=== PATIENT | male | born 1950 | race Caucasian/White ===

== ENCOUNTER 2018-07-13 17:17 | Inpatient (IN) ==
[2018-07-13] MEDS ORDERED: 0.9 % Sodium Chloride 1,000 ML IVC ONE (17:31)
[2018-07-13 17:47] LABS: Basophils % 0.4 %; Eosinophils # 0.2 K/mcL (0.0-0.6); Eosinophils % 2.4 %; Hematocrit 30.3 % (37.5-50.1); Hemoglobin 9.5 g/dL (12.9-16.9); Immature Granulocytes % 0.4 % (0-4); Lymphocytes # 1.4 K/mcL (0.6-4.6); Lymphocytes % 15.3 %; Mean Corpuscular HGB Conc 31.4 g/dL (31.6-35.5); Mean Corpuscular Hemoglobin 26.3 pg (28.0-33.3); Mean Corpuscular Volume 83.9 fL (83.0-100.0); Mean Platelet Volume 10.1 fL (9.4-12.4); Monocytes # 0.6 K/mcL (0.0-1.3); Monocytes % 6.7 %; Neutrophils # 6.9 K/mcL (1.6-8.9); Platelet Count 178 K/mcL (140-400); Red Blood Count 3.61 M/mcL (4.19-5.50); Red Cell Distribution Width 20.3 % (11.5-14.5); Segmented Neutrophils % 74.8 %
[2018-07-13 18:00] LABS: INR 1.1; Prothrombin Time 12.2 Seconds (9.4-12.1)
[2018-07-13 18:03] LABS: Activated Partial Thrombo Time 37.1 Seconds (26.0-36.0)
[2018-07-13 18:08] LABS: Alanine Aminotransferase 31 Units/L (7-52); Albumin 3.8 g/dL (3.5-5.7); Alkaline Phosphatase 74 Units/L (34-104); Aspartate Amino Transferase 33 Units/L (13-39); BUN/Creatinine Ratio 44 (6-26); Bilirubin,Total 0.5 mg/dL (0.3-1.0); Blood Urea Nitrogen 64 mg/dL (8-23); Calcium 9.6 mg/dL (8.6-10.3); Carbon Dioxide 30 mEq/L (23-29); Chloride 99 mEq/L (98-107); Globulin 3.7 g/dL (2.4-3.5); Glucose 112 mg/dL (70-105); Osmolality,Calculated 299 (280-300); Potassium 4.8 mEq/L (3.5-5.1); Sodium 135 mEq/L (136-145); Total Protein 7.5 g/dL (6.4-8.9); Troponin I < 0.03 ng/mL (< 0.04); eGFR For Non-African Americans 48 (> 60)
[2018-07-13] MEDS ORDERED: *HR* OxyCODONE/APAP 5/325 TABLET PO ONE (18:37)
--- NOTE | 2018-07-13 19:41 | Emergency Department Note ---
Disposition Clinical Impression: Anemia Qualifiers: Anemia type: unspecified type Qualified Code(s): D64.9 - Anemia, unspecified GI bleed Qualifiers: GI bleed type/associated pathology: unspecified gastrointestinal hemorrhage type Qualified Code(s): K92.2 - Gastrointestinal hemorrhage, unspecified Disposition: Admitted As Inpatient Condition: Fair [facility]: [facility]Primary Care Provider[facility] - Forms: ED Satisfaction Letter GI Bleed HPI - General Chief complaint: ED GI Bleed Stated complaint: anemia Time Seen by Provider: 07/13/18 17:23 Source: patient, EMS Mode of arrival: EMS Limitations: no limitations Nursing Notes Reviewed: Yes Vital Signs Reviewed: Yes - History of Present Illness HPI Narrative: 68-year-old male with a past medical history of polyps and hemorrhoids requiring multiple banding who presents to the ER from the [place] due to concern for rectal bleeding. States for 3 weeks he has had bleeding from his rectum. Has noticed that with every bowel movement. He is on an aspirin daily. Reports he has felt weak during this time and dizzy whenever he stands up his blood pressure has been low at home. No prior history of blood transfusion requirement secondary to GI bleed in the past. He was seen by his wine bottle inspector today who recommended he go to the ER. He went to the [facility] who then transferred him here. Denies any chest pain, shortness of breath, abdominal pain, nausea vomiting or diarrhea. No other complaints. Pt Subjective Complaint: gross hematochezia Onset (ago): week(s) Consistency: intermittent Improves with: nothing Worsens with: nothing Context: history of GI bleed, hemorrhoids Associated symptoms: Denies: abdominal pain Treatments Prior to Arrival: none - Related Data Allergies Allergy/AdvReac Type Severity Reaction Status Date / Time No Known Allergies Allergy Verified 07/13/18 17:47 All systems ED: reviewed and negative except as stated. Cardiovascular: Denies: chest pain Respiratory: Denies: dyspnea Gastrointestinal: Reports: hematochezia. Denies: abdominal pain, nausea, vomiting, diarrhea, hematemesis, melena Genitourinary: Denies: dysuria, hematuria Past Medical History - Past Medical History Attestation: Yes The following information was validated with the patient. Source: patient Medical history: Reports: asthma, COPD, diabetes, hyperlipidemia, hypertension, myocardial infarction Psychiatric history: Reports: anxiety, depression - Social History Smoking Status: Former smoker Smokeless Tobacco Status: No Alcohol use: Reports: none Drug use: Reports: none Physical Exam - General Limitations: no limitations General appearance: alert, in no apparent distress - Head Head exam: atraumatic, normocephalic, normal inspection - Eye Eye exam: Present: normal appearance - ENT ENT exam: normal exam - Neck Neck exam: Present: normal inspection - Chest Chest inspection: Present: normal inspection, symmetric chest wall rise - Respiratory Respiratory exam: Present: normal lung sounds bilaterally - Cardiovascular Cardiovascular exam: Present: regular rate, normal rhythm, normal heart sounds - Abdominal Exam Abdominal exam: Present: soft, Non-Tender. Absent: tenderness, distention, rigidity - Extremities Exam Extremities exam: Present: normal inspection, full ROM - Expanded Upper Extremity Exam Shoulder exam: Present: normal inspection, full ROM Arm exam: Present: normal inspection, full ROM Elbow exam: Present: normal inspection, full ROM Forearm/Wrist exam: Present: normal inspection, full ROM Hand exam: Present: normal inspection, full ROM - Expanded Lower Extremity Exam Hip/Pelvis exam: Present: normal inspection, full ROM Upper leg exam: Present: normal inspection, full ROM Knee exam: Present: normal inspection, full ROM Lower leg exam: Present: normal inspection, full ROM Ankle exam: Present: normal inspection, full ROM Foot/toe exam: Present: normal inspection, full ROM - Skin Skin exam: Present: warm, dry Course Course Narrative: Patient seen and examined. Vital signs reviewed. Plan for labs, IV fluids and likely admission for symptomatic anemia. - Consultations Consultation #1: I spoke with the on-call endoscopist Dr. Bush. Discussed patient's history as well as labs and concerns. Recommends to give the patient clear liquids, give the patient GoLYTELY and they will plan to scope him in the morning. Time: 18:36 Vital Signs Temperature 98.7 F 07/13/18 17:28 Pulse Rate 67 07/13/18 17:28 Respiratory Rate 18 07/13/18 17:28 Blood Pressure 113/51 07/13/18 17:28 O2 Sat by Pulse Oximetry 94 07/13/18 17:28 Temperature 98.7 F 07/13/18 17:28 Pulse Rate 67 07/13/18 17:28 Respiratory Rate 18 07/13/18 17:28 Blood Pressure 113/51 07/13/18 17:28 O2 Sat by Pulse Oximetry 94 07/13/18 17:28 Oxygen Delivery Oxygen Delivery Room Air GI Bleed - [facility] Narrative Medical decision making narrative: 68-year-old male presenting with multiple complaints. He said rectal bleeding for 3 weeks. He felt lightheaded at home. He is noted to have a hemoglobin of 9.5 today. He is hemodynamically stable. Case discussed with on-call endoscopy this. Plan to scope the patient in the morning. - Lab Data Lab results reviewed: Yes I reviewed the patient's lab results. Result diagrams: 07/13/18 17:36 07/13/18 17:36 Lab Results 07/13/18 07/13/18 07/13/18 Range/Units 17:36 17:36 17:36 WBC 9.2 (4.3-11.1) K/mcL RBC 3.61 L (4.19-5.50) M/mcL Hgb 9.5 L (12.9-16.9) g/dL Hct 30.3 L (37.5-50.1) % MCV 83.9 (83.0-100.0) fL MCH 26.3 L (28.0-33.3) pg MCHC 31.4 L (31.6-35.5) g/dL RDW 20.3 H (11.5-14.5) % Plt Count 178 (140-400) K/mcL MPV 10.1 (9.4-12.4) fL Immature Gran % 0.4 (0-4) % Seg Neutrophils % 74.8 % Lymphocytes % 15.3 % Monocytes % 6.7 % Eosinophils % 2.4 % Basophils % 0.4 % Neutrophils # 6.9 (1.6-8.9) K/mcL Lymphocytes # 1.4 (0.6-4.6) K/mcL Monocytes # 0.6 (0.0-1.3) K/mcL Eosinophils # 0.2 (0.0-0.6) K/mcL Basophils # 0.0 (0.0-0.2) K/mcL PT 12.2 H (9.4-12.1) Seconds INR 1.1 APTT 37.1 H (26.0-36.0) Seconds Sodium 135 L (136-145) mEq/L Potassium 4.8 (3.5-5.1) mEq/L Chloride 99 (98-107) mEq/L Carbon Dioxide 30 H (23-29) mEq/L BUN 64 H (8-23) mg/dL Creatinine 1.45 H (0.70-1.30) mg/dL Est GFR ( Amer) 58 L (> 60) Est GFR (Non-Af Amer) 48 L (> 60) BUN/Creatinine Ratio 44 H (6-26) Glucose 112 H (70-105) mg/dL Calculated Osmolality 299 (280-300) Calcium 9.6 (8.6-10.3) mg/dL Total Bilirubin 0.5 (0.3-1.0) mg/dL AST 33 (13-39) Units/L ALT 31 (7-52) Units/L Alkaline Phosphatase 74 (34-104) Units/L Troponin I < 0.03 (< 0.04) ng/mL Serum Total Protein 7.5 (6.4-8.9) g/dL Albumin 3.8 (3.5-5.7) g/dL Globulin 3.7 H (2.4-3.5) g/dL Albumin/Globulin Ratio 1.0 L (1.1-2.2) Blood Type 07/13/18 Range/Units 17:37 WBC (4.3-11.1) K/mcL RBC (4.19-5.50) M/mcL Hgb (12.9-16.9) g/dL Hct (37.5-50.1) % MCV (83.0-100.0) fL MCH (28.0-33.3) pg MCHC (31.6-35.5) g/dL RDW (11.5-14.5) % Plt Count (140-400) K/mcL MPV (9.4-12.4) fL Immature Gran % (0-4) % Seg Neutrophils % % Lymphocytes % % Monocytes % % Eosinophils % % Basophils % % Neutrophils # (1.6-8.9) K/mcL Lymphocytes # (0.6-4.6) K/mcL Monocytes # (0.0-1.3) K/mcL Eosinophils # (0.0-0.6) K/mcL Basophils # (0.0-0.2) K/mcL PT (9.4-12.1) Seconds INR APTT (26.0-36.0) Seconds Sodium (136-145) mEq/L Potassium (3.5-5.1) mEq/L Chloride (98-107) mEq/L Carbon Dioxide (23-29) mEq/L BUN (8-23) mg/dL Creatinine (0.70-1.30) mg/dL Est GFR ( Amer) (> 60) Est GFR (Non-Af Amer) (> 60) BUN/Creatinine Ratio (6-26) Glucose (70-105) mg/dL Calculated Osmolality (280-300) Calcium (8.6-10.3) mg/dL Total Bilirubin (0.3-1.0) mg/dL AST (13-39) Units/L ALT (7-52) Units/L Alkaline Phosphatase (34-104) Units/L Troponin I (< 0.04) ng/mL Serum Total Protein (6.4-8.9) g/dL Albumin (3.5-5.7) g/dL Globulin (2.4-3.5) g/dL Albumin/Globulin Ratio (1.1-2.2) Blood Type A POSITIVE - Radiology Data Radiology results reviewed: Yes I reviewed the patient's radiology results. Chest X-Ray 07/13/18 17:31 IMPRESSION: No acute process. D/ / 07/13/2018 18:04:19 Georges Joiner MD / [facility] Interpreting Provider: Georges Joiner MD - EKG Data EKG attestation: Yes I reviewed and interpreted this EKG. EKG results narrative: EKG demonstrates sinus rhythm with right bundle-branch block with a rate of 68 beats or minute. Normal axis. Prolonged QRS duration of 155. No gross ST elevations or depressions. No acute ischemic findings. No previous EKG for comparison. Kimmie - Kimmie Situation: Demographics, MOA Background: Presenting Complaint, Relevant PMH, Meds, & Allergies Assessment: Course and respsone to treatment, Exam Concerns, Patient/Family Expectation, Pertinant Lab Results Recommendation: Barrier(s) to disposition, Recommendation based on pending studi es, treatments, or consults S.B.John Report Given to: Dr. Ashley Burks Repor Time: 19:25 Attestation Statement - Attestation Attestation: I, Waqas Chase DO, examined this patient [id number] and my medical decision-making was reviewed with Dr. Gutierrez Lopez, Resident Physician. I agree with the documented findings, disposition and treatment plan as described except to the extent set forth below. Please see my progress notes for details.
--- NOTE | 2018-07-13 19:43 | Emergency Department Note ---
Disposition Clinical Impression: Weakness Anemia Qualifiers: Anemia type: unspecified type Qualified Code(s): D64.9 - Anemia, unspecified GI bleed Qualifiers: GI bleed type/associated pathology: unspecified gastrointestinal hemorrhage type Qualified Code(s): K92.2 - Gastrointestinal hemorrhage, unspecified Disposition: Admitted As Inpatient Condition: Fair [facility]errals: [facility] [Non-Partnered Physician] - Forms: ED Satisfaction Letter Time of Disposition: 19:44 General Adult HPI - General Chief complaint: ED GI Bleed Stated complaint: anemia Time Seen by Provider: 07/13/18 17:23 Source: patient, EMS Mode of arrival: EMS Limitations: no limitations - History of Present Illness Pain Scale: 4 - Related Data Allergies Allergy/AdvReac Type Severity Reaction Status Date / Time No Known Allergies Allergy Verified 07/13/18 17:47 Cardiovascular: Denies: chest pain Respiratory: Denies: dyspnea Gastrointestinal: Reports: hematochezia. Denies: abdominal pain, nausea, vomiting, diarrhea, hematemesis, melena Genitourinary: Denies: dysuria, hematuria Past Medical History - Past Medical History Medical history: Reports: asthma, COPD, diabetes, hyperlipidemia, hypertension, myocardial infarction Psychiatric history: Reports: anxiety, depression - Social History Smoking Status: Former smoker Smokeless Tobacco Status: No Alcohol use: Reports: none Drug use: Reports: none Physical Exam - General Limitations: no limitations General appearance: alert, in no apparent distress Course Vital Signs Temperature 98.7 F 07/13/18 17:28 Pulse Rate 67 07/13/18 17:28 Respiratory Rate 18 07/13/18 17:28 Blood Pressure 113/51 07/13/18 17:28 O2 Sat by Pulse Oximetry 94 07/13/18 17:28 Temperature 98.7 F 07/13/18 17:28 Pulse Rate 67 07/13/18 17:28 Respiratory Rate 18 07/13/18 17:28 Blood Pressure 113/51 07/13/18 17:28 O2 Sat by Pulse Oximetry 94 07/13/18 17:28 Oxygen Delivery Oxygen Delivery Room Air Medical Decision Making - Lab Data Result diagrams: 07/13/18 17:36 07/13/18 17:36 Lab Results 07/13/18 07/13/18 07/13/18 Range/Units 17:36 17:36 17:36 WBC 9.2 (4.3-11.1) K/mcL RBC 3.61 L (4.19-5.50) M/mcL Hgb 9.5 L (12.9-16.9) g/dL Hct 30.3 L (37.5-50.1) % MCV 83.9 (83.0-100.0) fL MCH 26.3 L (28.0-33.3) pg MCHC 31.4 L (31.6-35.5) g/dL RDW 20.3 H (11.5-14.5) % Plt Count 178 (140-400) K/mcL MPV 10.1 (9.4-12.4) fL Immature Gran % 0.4 (0-4) % Seg Neutrophils % 74.8 % Lymphocytes % 15.3 % Monocytes % 6.7 % Eosinophils % 2.4 % Basophils % 0.4 % Neutrophils # 6.9 (1.6-8.9) K/mcL Lymphocytes # 1.4 (0.6-4.6) K/mcL Monocytes # 0.6 (0.0-1.3) K/mcL Eosinophils # 0.2 (0.0-0.6) K/mcL Basophils # 0.0 (0.0-0.2) K/mcL PT 12.2 H (9.4-12.1) Seconds INR 1.1 APTT 37.1 H (26.0-36.0) Seconds Sodium 135 L (136-145) mEq/L Potassium 4.8 (3.5-5.1) mEq/L Chloride 99 (98-107) mEq/L Carbon Dioxide 30 H (23-29) mEq/L BUN 64 H (8-23) mg/dL Creatinine 1.45 H (0.70-1.30) mg/dL Est GFR ( Amer) 58 L (> 60) Est GFR (Non-Af Amer) 48 L (> 60) BUN/Creatinine Ratio 44 H (6-26) Glucose 112 H (70-105) mg/dL Calculated Osmolality 299 (280-300) Calcium 9.6 (8.6-10.3) mg/dL Total Bilirubin 0.5 (0.3-1.0) mg/dL AST 33 (13-39) Units/L ALT 31 (7-52) Units/L Alkaline Phosphatase 74 (34-104) Units/L Troponin I < 0.03 (< 0.04) ng/mL Serum Total Protein 7.5 (6.4-8.9) g/dL Albumin 3.8 (3.5-5.7) g/dL Globulin 3.7 H (2.4-3.5) g/dL Albumin/Globulin Ratio 1.0 L (1.1-2.2) Blood Type Antibody Screen 07/13/18 Range/Units 17:37 WBC (4.3-11.1) K/mcL RBC (4.19-5.50) M/mcL Hgb (12.9-16.9) g/dL Hct (37.5-50.1) % MCV (83.0-100.0) fL MCH (28.0-33.3) pg MCHC (31.6-35.5) g/dL RDW (11.5-14.5) % Plt Count (140-400) K/mcL MPV (9.4-12.4) fL Immature Gran % (0-4) % Seg Neutrophils % % Lymphocytes % % Monocytes % % Eosinophils % % Basophils % % Neutrophils # (1.6-8.9) K/mcL Lymphocytes # (0.6-4.6) K/mcL Monocytes # (0.0-1.3) K/mcL Eosinophils # (0.0-0.6) K/mcL Basophils # (0.0-0.2) K/mcL PT (9.4-12.1) Seconds INR APTT (26.0-36.0) Seconds Sodium (136-145) mEq/L Potassium (3.5-5.1) mEq/L Chloride (98-107) mEq/L Carbon Dioxide (23-29) mEq/L BUN (8-23) mg/dL Creatinine (0.70-1.30) mg/dL Est GFR ( Amer) (> 60) Est GFR (Non-Af Amer) (> 60) BUN/Creatinine Ratio (6-26) Glucose (70-105) mg/dL Calculated Osmolality (280-300) Calcium (8.6-10.3) mg/dL Total Bilirubin (0.3-1.0) mg/dL AST (13-39) Units/L ALT (7-52) Units/L Alkaline Phosphatase (34-104) Units/L Troponin I (< 0.04) ng/mL Serum Total Protein (6.4-8.9) g/dL Albumin (3.5-5.7) g/dL Globulin (2.4-3.5) g/dL Albumin/Globulin Ratio (1.1-2.2) Blood Type A POSITIVE Antibody Screen NEGATIVE Attestation Statement - Attestation Attestation: I, Waqas Chase DO, examined this patient [id number] and my medical decision-making was reviewed with Dr. Gutierrez Lopez, Resident Physician. I agree with the documented findings, disposition and treatment plan as described except to the extent set forth below. Please see my progress notes for details. 68-year-old male presents to the emergency room for evaluation of GI bleed and anemia. She was seen at the [facility] earlier today where he was evaluated for concern of gross red blood per rectum. His had this happen multiple times in the past secondary to bleeding polyps and hemorrhoids. Patient is describing lightheadedness and low blood pressure home since the bleeding started several weeks ago. Those symptoms have progressively become worse. Patient denies any chest pain, shortness of breath, headache or vision change. Patient denies nausea vomiting or diarrhea. No fevers no chills. Denies any trauma the medications or travel outside the country. Vital signs are stable here during transport and on arrival to the emergency room. Patient ambulated from the EMS cot to the bed without any complication. His conj unctivae are slightly pale. His skin has a macias coloration to this is all been chronic over the last several weeks according to the family. Pupils are equal round reactive. Extraocular muscles are intact. Lungs are clear to auscultation. Heart is regular with no murmurs noted. Abdomen is soft nontender nondistended no guarding no rigidity or peritoneal symptoms at this time. She examination will be treated completed at the discretion of the patient. Vital signs otherwise unremarkable. Labs will be repeated here for confirmation treatment. Imaging modalities will be discussed as needed. Workup from the [facility] were also be reviewed. Fluids will be given type and screen will be ordered. The detailed documentation of the physical exam, medical intervention, medical decision-making and disposition in the resident physician's note. 1800 Labs are reviewed. The on-call reproduction order processor was contacted. Patient will be admitted for symptomatic GI bleed with stable presentation. Hospitalist is been paged for the admission process to be completed this point. 193 Patient was discussed with the hospitalist. Patient will be limited to clear liquids and in preparation for colonoscopy tomorrow. Pain medication has been provided. Hospitalist had no other recommendations or concerns at this point. Patient will be admitted for continuation of care. Patient will be observed here in the emergency room until admission processes established
[2018-07-13] MEDS ORDERED: SODIUM CHLORIDE/NAHCO3/KCL/PEG 4,000 ML SOLN.RECON PO ONE (21:40)
--- NOTE | 2018-07-13 23:09 | Internal Med History&Physical ---
Date of Encounter: 07/13/18 Time of Encounter: 23:09 Internal Medicine - H&P: HPI Chief complaint: GI Bleed History of present illness: Mr. Correa is a 68 year old male with a past medical history of COPD, diabetes, hypertension, hyperlipidemia, coronary artery disease who was referred from the [facility] due to reports of GI bleed. She states that he has been having bright red blood per rectum for the past 3 weeks. He has noted blood mixed in with the stool or on the toilet paper with every bowel movement. He cannot describe the quantity but says it is more than a teaspoon. Patient states he has a history of polyps and hemorrhoids status post banding in the past. These episodes of bleeding have been daily. He has also noted that his blood pressure over the past several weeks has been running low with a systolic in the 90s and diastolic in the 40s to 50s. His Lasix was recently cut down to 3 tabs. Patient denies any abdominal pain. Denies any NSAID use. He also denies any dark stools. Patient is currently on supplemental iron. He does endorse dizziness and lightheadedness when he sits up. No recent antibiotic use. Patient was found to have a hemoglobin of 9.5 on arrival. Remains hemodynamically stable. Case was discussed with gastroenterology who will scope the patient in the morning. Past Med Surg Social Fam HX - Past Medical History Medical history: asthma, COPD, diabetes, hyperlipidemia, hypertension, myocardial infarction Additional medical history: 30 heart stents Psychiatric history: anxiety, depression - Past Surgical History Surgical History: tonsilectomy - Social History Smoking Status: Former smoker Smokeless Tobacco Status: No Alcohol use: none Drug use: none - Family History Father Living Status: Hx Family Cancer: Yes (stomach cancer) Mother Living Status: Hx Family Endocrine Disorder: Yes Internal Medicine - H&P: Meds Albuterol Sulfate [Albuterol Inhaler] 2 puff IH QID PRN 07/13/18 [History] Aspirin [Adult Aspirin] 81 mg PO QDPC 07/13/18 [History] Atorvastatin Calcium [Lipitor] 80 mg PO HS 07/13/18 [History] Bumetanide [Bumex] 1 mg PO TID 07/13/18 [History] Cholecalciferol (D-3) [Vitamin D] 2,000 unit PO DAILY 07/13/18 [History] Cyanocobalamin (B-12) [Vitamin B12] 1,000 mcg PO BID 07/13/18 [History] Docusate [Colace] 100 mg PO BID 07/13/18 [History] Ferrous Sulfate [Iron] 325 mg PO BID 07/13/18 [History] Fluticasone Propionate Nasal [Flonase] 1 spr NS BID 07/13/18 [History] Isosorbide MONOnitrate [Isosorbide Mononitrate] 30 mg PO QDPC 07/13/18 [History] Levothyroxine [Synthroid] 75 mcg PO DAILY 07/13/18 [History] Lisinopril [Zestril] 5 mg PO DAILY 07/13/18 [History] Loratadine [Claritin] 10 mg PO DAILY 07/13/18 [History] Magnesium Oxide [Mag-Ox] 400 mg PO DAILY 07/13/18 [History] Metformin HCl 1,000 mg PO BID 07/13/18 [History] Golden-3/Dha/Epa/Fish Oil [Fish Oil 1,000 mg Softgel] 2 each PO BID 07/13/18 [History] Pregabalin [Lyrica] 225 mg PO BID 07/13/18 [History] Sertraline [Zoloft] 100 mg PO DAILY 07/13/18 [History] Tamsulosin HCl [Flomax] 0.4 mg PO DAILY 07/13/18 [History] Allopurinol [Zyloprim 100 MG] 100 mg PO DAILY 07/14/18 [History] Budesonide/Formoterol 160/4.5 [Symbicort 160/4.5] 2 puff IH BID 07/14/18 [History] Lidocaine 1 appl TP HS 07/14/18 [History] Metoprolol Succinate [Toprol Xl] 50 mg PO DAILY 07/14/18 [History] Pyridoxine (B-6) [Vitamin B-6] 50 mg PO BID 07/14/18 [History] Spironolactone 50 mg PO DAILY 07/14/18 [History] Tiotropium Traer [Spiriva Respimat] 2 puff IH DAILY 07/14/18 [History] Allergy/AdvReac Type Severity Reaction Status Date / Time No Known Allergies Allergy Verified 07/13/18 17:47 All Systems PM: A 10-system review of systems was performed and is negative for pertinent findings except as documented above in the HPI. - Constitutional Vitals: Temp Pulse Resp BP Pulse Ox 98.5 F 68 16 120/67 93 07/13/18 22:56 07/13/18 22:56 07/13/18 22:56 07/13/18 22:56 07/13/18 22:56 Exam: General: Alert and oriented 3 lying in bed in no acute distress Skin:Normal color, no rash, no lesions. HEENT:EOM, pupils equal, round and reactive. Cardiovascular:Normal S1 & S2, no rubs, murmurs or gallops. No JVD. Pulse regular. Lungs:Normal breath sounds, no wheezes or crackles. Abdomen:Soft, non-tender, no rigidity. Extremities:No deformity, no edema or tenderness, no joint swelling or clubbing. Neurological:Normal cognition and motor skills. Pulses:Carotid and radial pulses normal +2. Rest of the physical exam is non contributory Internal Med - H&P Results - Labs CBC & Chem 7: 07/14/18 04:01 07/13/18 17:36 Labs: Short CBC 07/13/18 Range/Units 17:36 WBC 9.2 (4.3-11.1) K/mcL Hgb 9.5 L (12.9-16.9) g/dL Hct 30.3 L (37.5-50.1) % Plt Count 178 (140-400) K/mcL Neutrophils # 6.9 (1.6-8.9) K/mcL BMP 07/13/18 17:36 Sodium 135 L Potassium 4.8 Chloride 99 Carbon Dioxide 30 H BUN 64 H Creatinine 1.45 H Glucose 112 H Calcium 9.6 Cardiac Enzymes 07/13/18 Range/Units 17:36 Troponin I < 0.03 (< 0.04) ng/mL Liver Function 07/13/18 Range/Units 17:36 Total Bilirubin 0.5 (0.3-1.0) mg/dL AST 33 (13-39) Units/L ALT 31 (7-52) Units/L Alkaline Phosphatase 74 (34-104) Units/L Albumin 3.8 (3.5-5.7) g/dL - Impressions ITS Impressions Chest X-Ray 10/26/18 17:31 IMPRESSION: No acute process. D/ / 07/13/2018 18:04:19 Georges Joiner MD / [facility] Interpreting Provider: Georges Joiner MD - Assessment and plan (1) GI bleed Status: Acute Assessment and plan: GI bleed likely lower in the setting of reported bright red blood per rectum. Case discussed with gastroenterology Dr. Bush with plan to scope the patient in the morning. Patient will be given GoLYTELY for bowel prep We will monitor vitals and H&H Qualifiers: GI bleed type/associated pathology: unspecified gastrointestinal hemorrhage type Qualified Code(s): K92.2 - Gastrointestinal hemorrhage, unspecified (2) Anemia Status: Acute Assessment and plan: Normocytic Anemia in the setting of lower GI bleed. No previous hemoglobin measurements in our records to compare to. Type and screen Serial H&H Qualifiers: Anemia type: unspecified type Qualified Code(s): D64.9 - Anemia, unspecified (3) Weakness Status: Acute Assessment and plan: Generalized weakness in the setting of above. (4) COPD (chronic obstructive pulmonary disease) Status: Chronic Assessment and plan: No evidence of acute exacerbation. We will continue home inhalers. Qualifiers: COPD type: unspecified COPD Qualified Code(s): J44.9 - Chronic obstructive pulmonary disease, unspecified (5) Diabetes Status: Chronic Assessment and plan: Blood glucose checks. Sliding scale insulin once patient by mouth Qualifiers: Diabetes mellitus type: type 2 Diabetes mellitus c4 planner insulin use: without c4 planner use Diabetes mellitus complication status: without complication Qualified Code(s): E11.9 - Type 2 diabetes mellitus without complications (6) Hypertension Status: Chronic Assessment and plan: Blood pressure stable. We will monitor. Hold antihypertensives for now. Qualifiers: Hypertension type: essential hypertension Qualified Code(s): I10 - Essential (primary) hypertension (7) DVT prophylaxis Status: Acute Assessment and plan: Pneumatic compression devices. - Time Spent With Patient Total time spent is greater than 50% in coordination of care (as documented) at patient's floor/unit and/or counseling patient:
[2018-07-14] MEDS ORDERED: 0.9 % Sodium Chloride 1,000 ML IVC SCH (05:00)
[2018-07-14 05:04] LABS: Basophils # 0.1 K/mcL (0.0-0.2); Basophils % 0.5 %; Eosinophils # 0.3 K/mcL (0.0-0.6); Eosinophils % 2.8 %; Hematocrit 31.6 % (37.5-50.1); Hemoglobin 9.9 g/dL (12.9-16.9); Immature Granulocytes % 0.4 % (0-4); Lymphocytes # 2.1 K/mcL (0.6-4.6); Lymphocytes % 21.8 %; Mean Corpuscular HGB Conc 31.3 g/dL (31.6-35.5); Mean Corpuscular Hemoglobin 26.4 pg (28.0-33.3); Mean Corpuscular Volume 84.3 fL (83.0-100.0); Mean Platelet Volume 10.4 fL (9.4-12.4); Monocytes # 0.7 K/mcL (0.0-1.3); Neutrophils # 6.6 K/mcL (1.6-8.9); Platelet Count 190 K/mcL (140-400); Red Blood Count 3.75 M/mcL (4.19-5.50); Red Cell Distribution Width 20.1 % (11.5-14.5); Segmented Neutrophils % 67.5 %
[2018-07-14 05:15] LABS: INR 1.1; Prothrombin Time 12.1 Seconds (9.4-12.1)
[2018-07-14 05:18] LABS: Activated Partial Thrombo Time 35.8 Seconds (26.0-36.0)
[2018-07-14] MEDS ORDERED: OXYCODONE Oral CONC 10 MG/0.5 ML ORAL.SYG SL ONE (07:27)
[2018-07-14] MEDS: Bumetanide 1 MG TABLET PO SCH ×2 (09:22→14:15)
--- NOTE | 2018-07-14 10:29 | Anesthesia Evaluation PreOp ---
Date of Encounter: 07/14/18 Time of Encounter: 10:49 - Past History Planned Operation: Colonoscopy Cardiac History: [place], HTN, Hyperlipidemia, Cardiac Surgery (CABG x 3 in 2000), Cardiac Stent (patient reports 30 stents, none within the past 6 years) Pulmonary History: COPD (oxygen dependent at night and during exertion), KENDALL Dx (cpap) [employer]WARE [employer] History: Denies Any Significant HX Other Medical History: Diabetes Type II (insulin dependent), Thyroid, Other (BMI 51) Anesthesia History: No Prior Anesthetic Complications Alcohol Use: none Drug use: none Medications and Allergies Albuterol Sulfate [Albuterol Inhaler] 2 puff IH PRN PRN 07/13/18 [History] Aspirin [Adult Aspirin] 81 mg PO QDPC 07/13/18 [History] Atorvastatin Calcium [Lipitor] 80 mg PO HS 07/13/18 [History] Bumetanide [Bumex] 1 mg PO TID 07/13/18 [History] Cholecalciferol (D-3) [Vitamin D] 1,000 unit PO DAILY 07/13/18 [History] Cyanocobalamin (B-12) [Vitamin B12] 1,000 mcg PO BID 07/13/18 [History] Docusate [Colace] 100 mg PO BID 07/13/18 [History] Ferrous Sulfate [Iron] 325 mg PO BID 07/13/18 [History] Fluticasone Propionate Nasal [Flonase] 1 g NS BID MDD 2 07/13/18 [History] Isosorbide MONOnitrate [Isosorbide Mononitrate] 30 mg PO QDPC 07/13/18 [History] Levothyroxine Sodium 0.075 units PO DAILY 07/13/18 [History] Lisinopril [Zestril] 10 mg PO DAILY 07/13/18 [History] Loratadine [Claritin] 10 mg PO DAILY 07/13/18 [History] Magnesium Oxide [Mag-Ox] 400 mg PO DAILY 07/13/18 [History] Metformin HCl 1,000 mg PO 1-2XD 07/13/18 [History] [place]-3/Dha/Epa/Fish Oil [Fish Oil 1,000 mg Softgel] 2 each PO BID 07/13/18 [History] Pregabalin [Lyrica] 225 mg PO 1-2XD 07/13/18 [History] Sertraline [Zoloft] 100 mg PO DAILY 07/13/18 [History] Tamsulosin HCl [Flomax] 0.4 mg PO DAILY 07/13/18 [History] Tiotropium [Spiriva] 2.5 mcg IH 07/13/18 [History] Allergy/AdvReac Type Severity Reaction Status Date / Time No Known Allergies Allergy Verified 07/13/18 17:47 - Meds/Allergy Pre-op Review Medications Reviewed: Yes Allergies Reviewed: Yes Beta Blockers on Current Med List: No Anesthesia Results - Labs 07/14/18 04:01 07/13/18 17:36 Anesthesia Exam Last Vital Signs Temp 97.6 F 07/14/18 08:07 Pulse 81 07/14/18 08:07 Resp 17 07/14/18 08:07 BP 98/61 07/14/18 08:07 Pulse Ox 99 07/14/18 08:07 Weight: 166 kg NPO (# of Hours): > 8 hrs - HEENT Pupil (Motor): Pupils equal, EOMI Mallampati: III Teeth: Poor dentition Oral Opening: Greater than 3 - Cardiac Rhythm: Regular Murmur: None - Pulmonary Breath Sounds: bilateral Clear Respiratory Effort: Symmetrical Anesthesia Assess/Plan ASA Score: 4 Modified Fede Scale for Level of Consciousness: Cooperative, oriented, and tranquil Anesthetic Plan: General (if needed), MAC Monitoring Plan: Standard Monitors Recovery Plan: PACU
--- NOTE | 2018-07-14 10:51 | Gastroenterology Consult Note ---
Date of Encounter: 07/14/18 Time of Encounter: 09:00 - Time Spent With Patient Total time spent is greater than 50% in coordination of care (as documented) at patient's floor/unit and/or counseling patient: GI History of Present Illness - Data of Consult Patient: new to practice Consult date: 07/14/18 Requesting Physician: Jem Odom - Consult Narrative Reason for consult: Rectal bleeding past several days. Patient sent over from the [place] History of present illness: Mr. Correa is a 68 year old male Past Med Surg Social Fam HX - Past Medical History Medical history: asthma, COPD, diabetes, hyperlipidemia, hypertension, myocardial infarction Additional medical history: 30 heart stents Psychiatric history: anxiety, depression - Past Surgical History Surgical History: tonsilectomy - Social History Smoking Status: Former smoker Smokeless Tobacco Status: No Alcohol use: none Drug use: none - Family History Father Living Status: Hx Family Cancer: Yes (stomach cancer) Mother Living Status: Hx Family Endocrine Disorder: Yes - Constitutional Vitals: Temp Pulse Resp BP Pulse Ox 97.6 F 73 16 116/49 99 07/14/18 08:07 07/14/18 10:30 07/14/18 10:30 07/14/18 10:30 07/14/18 10:30 Results - Labs CBC & Chem 7: 07/14/18 04:01 07/13/18 17:36 Labs: Last Result Calcium 9.6 mg/dL (8.6-10.3) 07/13/18 17:36 Troponin I < 0.03 ng/mL (< 0.04) 07/13/18 17:36 Entire Visit Hgb 9.9 g/dL (12.9-16.9) L 07/14/18 04:01 Hct 31.6 % (37.5-50.1) L 07/14/18 04:01 PT 12.1 Seconds (9.4-12.1) 07/14/18 04:01 Total Bilirubin 0.5 mg/dL (0.3-1.0) 07/13/18 17:36 AST 33 Units/L (13-39) 07/13/18 17:36 ALT 31 Units/L (7-52) 07/13/18 17:36 - ABG ABG results: PT/INR, D-dimer PT 12.1 Seconds (9.4-12.1) 07/14/18 04:01 - Impressions Impressions Chest X-Ray 07/13/18 17:31 IMPRESSION: No acute process. D/ / 07/13/2018 18:04:19 Georges Joiner MD / helene Interpreting Provider: Georges Joiner MD Consult Discharge Plan - Plan Instructions: Gastrointestinal Bleeding (DC) Additional Instructions: FOLLOW-UP WITH OUTPATIENT GENERAL SURGERY -- IN 6-10 DAYS.. CBC -- IN 4-5 DAYS.. Referrals: [facility] [Outside]
[2018-07-14] MEDS ORDERED: Lidocaine -MPF 2% 2 ML VIAL ONE (11:13)
[2018-07-14] MEDS ORDERED: Propofol 500 MG/50 ML INFUS..BTL ONE (11:13)
[2018-07-14] MEDS ORDERED: *HR* PHENYLEPHRINE 1,000 MCG/10 ML SYRINGE IVP ONE (11:13)
[2018-07-14 12:09] VITALS: BP 108/67
--- NOTE | 2018-07-14 13:02 | Anesthesia Evaluation Post Op ---
Date of Encounter: 07/14/18 Time of Encounter: 10:30 - Vital Signs Vital Signs: BP 116/49 HR 73 RR 16 O2 99 - Lungs Lungs: Clear Ascult./Percussion - Airway Airway: Non-obstructed - Cardiovascular Regular Rate - Mental Status Mental Status: Alert & Oriented, Answers Appropriately - Pain Pain Scale: 1 - Nausea Vomiting Nausea Vomiting: Not Present - Hydration Hydration: NPO - Discharge PostOp Status: Discharge Patient to home
[2018-07-14] MEDS ORDERED: Tiotropium 18 MCG inhalation IH SCH (13:15)
--- NOTE | 2018-07-14 14:03 | Discharge Summary ---
Orders not resulted at time of discharge: Pending orders 07/13/18 17:31 ECG 12 lead ECG [ECG] Stat Date of Encounter: 07/14/18 Time of Encounter: 14:00 - Discharge Diagnosis (1) Hemorrhoids, internal, with bleeding Priority: Primary Status: Acute (2) Diverticulosis of colon Priority: Secondary Status: Chronic (3) Acute blood loss anemia Priority: Primary Status: Acute (4) CAD (coronary artery disease) Priority: Secondary Status: Chronic Qualifiers: Coronary Disease-Associated Artery/Lesion type: [place] artery [place] vs. transplanted heart: [place] heart Associated angina: without angina Qualified Code(s): I25.10 - Atherosclerotic heart disease of [place] coronary artery without angina pectoris (5) COPD (chronic obstructive pulmonary disease) Priority: Secondary Status: Chronic Qualifiers: COPD type: unspecified COPD Qualified Code(s): J44.9 - Chronic obstructive pulmonary disease, unspecified (6) Diabetes Priority: Secondary Status: Chronic Qualifiers: Diabetes mellitus type: type 2 Diabetes mellitus correction insulin use: without supervisor drilling and shooting use Diabetes mellitus complication status: without complication Qualified Code(s): E11.9 - Type 2 diabetes mellitus without complications (7) Hypertension Priority: Secondary Status: Chronic Qualifiers: Hypertension type: essential hypertension Qualified Code(s): I10 - Essential (primary) hypertension Hospital course: HOSPITAL COURSE: The patient is a 68-year-old male. He was admitted with bright red blood rectal bleedinghappening to him in the last 3 weeks preceding this admission. He does have history of colonic polyps and hemorrhoids (head banding in the past). We presented him to GI service. The patient underwent colonoscopy. We found him to have diverticulosis of colon with no evidence for recent bleeding. We found him to have internal hemorrhoids suspected to be source of his recently observed bleeding. We also found a small polyp. It was not removed due to aspirin he was taking recently. One can see that his hemoglobin at admission was 9.5. It was 9.9 on the day of discharge. CONDITION AT DISCHARGE: There is no significant bleeding from his rectum. He does give mild perirectal discomfort. Otherwise he denies abdominal pain, nausea and vomiting. Skin: Free of rash and discoloration. Respiratory: Normal breath sounds with no crackles and wheezes bilaterally. CV: Heart is regular with no gallop or murmur. GI: Abdomen is flat and soft with no palpable mass or visceromegaly. Neuro exam: There is no focal deficits. Normal speech, swallowing and gait. SEE DISCHARGE ORDERS/MEDICATIONS.. Discharge discussed with: patient, family, nurse - Time Spent with Patient Total time spent providing and/or coordinating discharge services: Greater than 30 minutes (45 minutes..) - Discharge Medications Home Medications: Albuterol Sulfate [Albuterol Inhaler] 2 puff IH QID PRN 07/13/18 [History] Aspirin [Adult Aspirin] 81 mg PO QDPC 07/13/18 [History] Atorvastatin Calcium [Lipitor] 80 mg PO HS 07/13/18 [History] Bumetanide [Bumex] 1 mg PO TID 07/13/18 [History] Cholecalciferol (D-3) [Vitamin D] 2,000 unit PO DAILY 07/13/18 [History] Cyanocobalamin (B-12) [Vitamin B12] 1,000 mcg PO BID 07/13/18 [History] Docusate [Colace] 100 mg PO BID 07/13/18 [History] Ferrous Sulfate [Iron] 325 mg PO BID 07/13/18 [History] Fluticasone Propionate Nasal [Flonase] 1 spr NS BID 07/13/18 [History] Isosorbide MONOnitrate [Isosorbide Mononitrate] 30 mg PO QDPC 07/13/18 [History] Levothyroxine [Synthroid] 75 mcg PO DAILY 07/13/18 [History] Lisinopril [Zestril] 5 mg PO DAILY 07/13/18 [History] Loratadine [Claritin] 10 mg PO DAILY 07/13/18 [History] Magnesium Oxide [Mag-Ox] 400 mg PO DAILY 07/13/18 [History] Metformin HCl 1,000 mg PO BID 07/13/18 [History] [place]-3/Dha/Epa/Fish Oil [Fish Oil 1,000 mg Softgel] 2 each PO BID 07/13/18 [History] Pregabalin [Lyrica] 225 mg PO BID 07/13/18 [History] Sertraline [Zoloft] 100 mg PO DAILY 07/13/18 [History] Tamsulosin HCl [Flomax] 0.4 mg PO DAILY 07/13/18 [History] Allopurinol [Zyloprim 100 MG] 100 mg PO DAILY 07/14/18 [History] Budesonide/Formoterol 160/4.5 [Symbicort 160/4.5] 2 puff IH BID 07/14/18 [History] Lidocaine 1 appl TP HS 07/14/18 [History] Metoprolol Succinate [Toprol Xl] 50 mg PO DAILY 07/14/18 [History] Pyridoxine (B-6) [Vitamin B-6] 50 mg PO BID 07/14/18 [History] Spironolactone 50 mg PO DAILY 07/14/18 [History] Tiotropium [place] [Spiriva Respimat] 2 puff IH DAILY 07/14/18 [History] Allergies/Adverse Reactions: Allergy/AdvReac Type Severity Reaction Status Date / Time No Known Allergies Allergy Verified 07/13/18 17:47 Date of admission: 07/14/18 09:35 Primary care physician: PCP BRYN Consults: 07/13/18 18:21 Consult to Gastroenterology [CONS] Stat Consulting Provider: Gastroenterology [facility] Reason for Consult: GI bleed Time Notified: 18:21 Call Completed: Yes Discharging clinician: Jem Odom Anticipated date of discharge: 07/14/18 - Constitutional Vitals: Temp Pulse Resp BP Pulse Ox 97.8 F 68 17 108/67 99 07/14/18 12:07 07/14/18 12:07 07/14/18 12:07 07/14/18 12:07 07/14/18 12:07 General appearance: Present: A&O X 3, no acute distress, answers questions appropriately Exam: xx - Patient Status Disposition: Home, Self-Care Condition: Fair - Discharge Instructions Instructions: Gastrointestinal Bleeding (DC) Follow Up With: [facility] [Outside] Additional Instructions: FOLLOW-UP WITH OUTPATIENT GENERAL SURGERY -- IN 6-10 DAYS.. CBC -- IN 4-5 DAYS.. - Diet and Activity Activity: resume usual activities as tolerated Diet: diabetic diet - VTE Reasons for not Prescribing Prophylaxis: Medical contraindication (GI bleeding..) Deep Vein Thrombosis/Pulmonary Embolism Present on Admission: No
[2018-07-14] MEDS ORDERED: *HR* Metformin 500 MG TABLET PO SCH (17:00)
[2018-07-14] MEDS ORDERED: Cyanocobalamin (B-12) 1,000 MCG TABLET PO SCH (21:00)
[2018-07-14] MEDS ORDERED: Pregabalin 75 MG CAPSULE PO SCH (21:00)
[2018-07-14] MEDS ORDERED: Lidocaine OINT 35.44 GM TUBE TP SCH (21:00)
[2018-07-14] MEDS ORDERED: Fluticasone Propionate Nasal 50 MCG/SPRAY BOTTLE NS SCH (21:00)
[2018-07-14] MEDS ORDERED: Pyridoxine (B-6) 50 MG TABLET PO SCH (21:00)
[2018-07-14] MEDS ORDERED: (Omega-3/Dha/Epa/Fish Oil [Fish Oil 1,000 Mg Softgel] PO SCH (21:00)
[2018-07-14] MEDS ORDERED: Budesonide/Formoterol 160/4.5 1 PUFF INH IH SCH (22:00)
[2018-07-15] MEDS ORDERED: Loratadine 10 MG TABLET PO SCH (09:00)
[2018-07-15] MEDS ORDERED: Magnesium Oxide 400 MG TABLET PO SCH (09:00)
[2018-07-15] MEDS ORDERED: Aspirin Enteric Coated 81 MG Tablet PO SCH (09:00)
[2018-07-15] MEDS ORDERED: Spironolactone 25 MG TABLET PO SCH (09:00)
[2018-07-15] MEDS ORDERED: Metoprolol XL (24 HR) Succ 50 MG TAB.ER.24H PO SCH (09:00)
[2018-07-15] MEDS ORDERED: Cholecalciferol (D-3) 1,000 UNIT TABLET PO SCH (09:00)
[2018-07-15] MEDS ORDERED: Isosorbide MONOnitrate (24 HR) 30 MG TAB.ER.24H PO SCH (09:00)
--- NOTE | 2018-07-20 09:51 | Electrocardiograph Report ---
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
== END 2018-07-14 14:50 | disposition home or self-care (01) | DRG 393 ==
LOC: 3ANU 17:17 → EMEROOARM 17:17 → 3ANU 21:30 → SUATTDRO 21:38 → 3ANU 07-14 04:45
PROVIDERS: ADMIT Internal Medicine; ATTEND Internal Medicine